=== PATIENT | male | born 1970 | race Caucasian/White ===

== ENCOUNTER 2022-03-06 07:00 | Outpatient (RCR) | payer BC ==
[~2022-03-06 07:00] MED LIST: ASPIRIN81 MG PO; IBUPROFEN200 MG PO; KETOROLAC TROME10 MG; LOSARTAN POTASS25 MG PO; METOPROLOL TART50 MG PO
== END 2022-03-18 ==
LOC: PT 07:00
PROVIDERS: ATTEND Specialist
DX: Z47.89 Encounter for other orthopedic aftercare (principal); S83.222D Peripheral tear of medial meniscus, current injury, left knee, subsequent encounter; M25.562 Pain in left knee; M62.81 Muscle weakness (generalized); R26.89 Other abnormalities of gait and mobility

== ENCOUNTER 2022-04-10 07:00 | Outpatient (RCR) | payer BC | END 2022-04-15 | LOC: PT 07:00 | PROVIDERS: ATTEND Specialist | DX: Z47.89 Encounter for other orthopedic aftercare (principal); S83.222D Peripheral tear of medial meniscus, current injury, left knee, subsequent encounter; M25.562 Pain in left knee; M62.81 Muscle weakness (generalized); R26.89 Other abnormalities of gait and mobility ==

== ENCOUNTER 2022-05-13 07:00 | Outpatient (RCR) | payer BC | END 2022-05-16 | LOC: PT 07:00 | PROVIDERS: ATTEND Specialist | DX: S83.222D Peripheral tear of medial meniscus, current injury, left knee, subsequent encounter (principal); Z47.89 Encounter for other orthopedic aftercare; M62.81 Muscle weakness (generalized); R26.89 Other abnormalities of gait and mobility; M25.562 Pain in left knee ==

== ENCOUNTER 2022-05-20 06:54 | Outpatient (RCR) | payer BC | END 2022-06-15 | LOC: PT 06:54 | PROVIDERS: ATTEND Specialist | DX: M25.562 Pain in left knee (principal) ==